=== PATIENT | male | born 1980 | race Two or more races ===

== ENCOUNTER 2019-12-19 17:58 | Emergency (ER) | payer SELFPAY ==
[~2019-12-19] VITALS: Ht 172.7 cm; Wt 72.6 kg
[2019-12-19 18:20] VITALS: BP 154/90
--- NOTE | 2019-12-19 18:20 | NUR ---
ED Nurse Note: Patient brought into ED by RA from home c/o respiratory distress at time of arrival patient was distraught and had no shirt on, claiming that he could not breathe. patient was satting at 99% on room air however was belligerent and cussing at staff. patient verbally requests for a non-rebreather. states that he does not want to be seen by an MD and would like to go home. patient is alert and oriented x4, able to follow directions however refused to sign AMA form. patient walked out of the ED.
--- NOTE | 2019-12-19 22:03 | Emergency Room Report ---
History of Present Illness General Chief Complaint: Dyspnea/Respdistress Source: Patient Present Illness HPI 39-year-old male with history of anxiety brought in by paramedics, running into the emergency room asking for oxygen. Patient appears to be stable with stable vital signs and keeps saying that he needs oxygen as he is feeling palpitation and anxious. Patient is very improved, making a scene, and screaming. Dr. Amador examined the patient upon arrival. Patient was given nasal cannula as he kept screaming and requesting oxygen. Patient did not allow any further evaluation, no blood drawn was done, patient left AGAINST MEDICAL ADVICE. Stable at time of discharge. Allergies: Coded Allergies: No Known Allergies (Unverified , 12/19/19) Patient History Past Medical History: see triage record Past Surgical History: unable to obtain Family History: unable to obtain Immunizations: UTD Reviewed Nursing Documentation: PMH: Agreed; PSxH: Agreed Nursing Documentation-PMH Past Medical History: No History, Except For Hx Asthma: Yes Review of Systems All Other Systems: negative except mentioned in HPI Physical Exam Vital Signs Date Time Temp Pulse Resp B/P (MAP) Pulse Ox O2 Delivery O2 Flow Rate FiO2 12/19/19 18:02 98.4 118 24 154/90 (111) 99 Room Air Sp02 EP Interpretation: reviewed, normal General Appearance: alert/responsive, no apparent distress, GCS 15, non-toxic Head: atraumatic Medical Decision Making PA Attestation All my diagnosis and treatment plans were reviewed ad discussed with my supervising physician Dr. Amador Diagnostic Impression: Primary Impression: Left against medical advice ER Course 39-year-old male with history of anxiety brought in by paramedics, running into the emergency room asking for oxygen. Patient appears to be stable with stable vital signs and keeps saying that he needs oxygen as he is feeling palpitation and anxious. Patient is very improved, making a scene, and screaming. Dr. Amador examined the patient upon arrival. Patient was given nasal cannula as he kept screaming and requesting oxygen. Patient did not allow any further evaluation, no blood drawn was done, patient left AGAINST MEDICAL ADVICE. Stable at time of discharge. Ddx considered but are not limited to: generalized anxiety disorder, panic attack, depression with psycotic featurs, bipolar disorder, drug overdose Vital signs: are WNL, pt. is afebrile H&PE are most consistent with: AGAINST MEDICAL ADVICE ORDERS: none required at this time, the diagnosis is clinical ED INTERVENTIONS: Nasal cannula for symptom relief Patient left AGAINST MEDICAL ADVICE Last Vital Signs Date Time Temp Pulse Resp B/P (MAP) Pulse Ox O2 Delivery O2 Flow Rate FiO2 12/19/19 18:02 98.4 118 24 154/90 (111) 99 Room Air Disposition: AGAINST MEDICAL ADVICE Condition: Stable Referrals: NOT CHOSEN IPA/MD,REFERRING (PCP) Michelle Dinero Dec 19, 2019 22:03
== END 2019-12-19 18:20 | disposition left against medical advice (07) ==
LOC: EDBD 17:58 → EMR 18:20
DX: F41.9 Anxiety disorder, unspecified (principal); R00.2 Palpitations; J45.909 Unspecified asthma, uncomplicated; Z53.29 Procedure and treatment not carried out because of patient's decision for other reasons
CPT/HCPCS: 99282